=== PATIENT | male | born 1940 | race Caucasian/White ===

== ENCOUNTER 2022-12-30 04:12 | Day surgery (SDC) | payer OTHER, BC ==
[2022-12-26 13:45] VITALS: BMI 14.8
[2022-12-30] MEDS ORDERED: LIDOCAINE HCL/PF 1% SDV 5ML VIAL ONE (07:22)
[2022-12-30] MEDS ORDERED: BUPIVACAINE HCL/PF 0.5% (5MG/ML) 10 ML VIAL ONE (07:22)
[2022-12-30] MEDS ORDERED: TRIAMCINOLONE ACET 40MG/1ML VIAL ONE (11:18)
[2022-12-30] MEDS ORDERED: IOHEXOL 180 MG/1 ML ML IJ ONE (11:26)
[2022-12-30] MEDS ORDERED: BUPIVACAINE HCL/PF 0.5% (5MG/ML) 10 ML VIAL IJ ONE (11:26)
[2022-12-30] MEDS ORDERED: TRIAMCINOLONE ACET 40MG/1ML VIAL IM ONE (11:26)
[2022-12-30] MEDS ORDERED: LIDOCAINE HCL 1%, 10 MG/ML (20ML VIAL) INF ONE (11:26)
[2022-12-30 11:49] VITALS: PULSE 64; TEMP 97.7
[2022-12-30 12:01] VITALS: BP 130/70; RESP 18
[2022-12-30] MEDS ORDERED: ACETAMINOPHEN 500 MG TABLET (FP) PO PRN (13:49)
== END 2022-12-30 12:06 | disposition home or self-care (01) ==
LOC: JASU-SURG 04:12
PROVIDERS: ATTEND Pain Medicine Pain Medicine
PROC: 3E0U3BZ Introduction of Anesthetic Agent into Joints, Percutaneous Approach (ICD-10-PCS; 2022-12-30)
PROC: 3E0U33Z Introduction of Anti-inflammatory into Joints, Percutaneous Approach (ICD-10-PCS; principal; 2022-12-30 11:45)
DX: M53.3 Sacrococcygeal disorders, not elsewhere classified (principal)
CPT/HCPCS: 76000-TC-FY

== ENCOUNTER 2023-02-27 04:13 | Day surgery (SDC) | payer OTHER, BC ==
[2023-02-24 15:17] VITALS: BMI 14.8
[2023-02-27] MEDS ORDERED: LIDOCAINE HCL/PF 1% SDV 5ML VIAL ONE (07:27)
[2023-02-27] MEDS ORDERED: LIDOCAINE HCL 1% PRESERVATIVE FREE - 30ML VIAL IJ ONE (09:20)
[2023-02-27 09:43] VITALS: PULSE 56
[2023-02-27 10:11] VITALS: BP 114/60; RESP 18; TEMP 98
[2023-02-27] MEDS ORDERED: ACETAMINOPHEN 500 MG TABLET (FP) PO PRN (12:50)
== END 2023-02-27 10:14 | disposition home or self-care (01) ==
LOC: JASU-SURG 04:13
PROVIDERS: ATTEND Pain Medicine Pain Medicine
PROC: 01HY3MZ Insertion of Neurostimulator Lead into Peripheral Nerve, Percutaneous Approach (ICD-10-PCS; principal; 2023-02-27 08:45)
DX: G89.4 Chronic pain syndrome (principal)
CPT/HCPCS: 64555; C1778; 76000-TC-FY

== ENCOUNTER 2023-03-03 04:06 | Day surgery (SDC) | payer OTHER, BC ==
[2023-02-26 08:51] VITALS: BMI 14.5
[2023-03-03] MEDS ORDERED: PROPOFOL 20 ML ONE (14:22)
[2023-03-03] MEDS ORDERED: MIDAZOLAM HCL 2 MG/2 ML SINGLE DOSE VIAL ONE (14:22)
[2023-03-03] MEDS ORDERED: LIDOCAINE HCL/PF 2% SDV 5ML VIAL ONE (14:24)
[2023-03-03] MEDS ORDERED: ONDANSETRON 4 MG/2 ML VIAL ONE (14:24)
[2023-03-03] MEDS ORDERED: DEXAMETHASONE SOD PHOSPHATE 4 MG/1 ML VIAL ONE (14:24)
[2023-03-03] MEDS ORDERED: ONDANSETRON 4 MG/2 ML VIAL IVPUSH PRN (15:43)
[2023-03-03] MEDS ORDERED: PROMETHAZINE HCL 25 MG/1 ML VIAL IVPB PRN (15:43)
[2023-03-03] MEDS ORDERED: LACTATED RINGERS SOLUTION 1,000 ML IV SCH (15:45)
[2023-03-03] MEDS ORDERED: ceFAZolin SODIUM 1 GM VIAL IVPB ONE (16:24)
[2023-03-03] MEDS ORDERED: SODIUM CHLORIDE 0.9% P/F 10 ML VIAL IJ ONE (16:41)
[2023-03-03] MEDS ORDERED: ceFAZolin SODIUM 1 GM VIAL ONE (16:41)
[2023-03-03 18:30] VITALS: RESP 18
[2023-03-03 19:26] VITALS: BP 111/58; PULSE 62; TEMP 97.9
== END 2023-03-03 18:50 | disposition home or self-care (01) ==
LOC: JASU-SURG 04:06
PROVIDERS: ATTEND Urology
PROC: 0TCB8ZZ Extirpation of Matter from Bladder, Via Natural or Artificial Opening Endoscopic (ICD-10-PCS; principal; 2023-03-03 14:00)
PROC: 0VT08ZZ Resection of Prostate, Via Natural or Artificial Opening Endoscopic (ICD-10-PCS; 2023-03-03 14:00)
DX: N40.1 Benign prostatic hyperplasia with lower urinary tract symptoms (principal); N21.0 Calculus in bladder; N13.8 Other obstructive and reflux uropathy; R33.8 Other retention of urine; N32.89 Other specified disorders of bladder
CPT/HCPCS: 86850; 86900; 86901; 94760

== ENCOUNTER 2023-11-06 01:55 | Emergency (ER) | payer OTHER, BC ==
[2023-11-06 02:00] VITALS: BP 109/74; PULSE 81; RESP 18; TEMP 97.3; BMI 14.3
[2023-11-06] MEDS ORDERED: MAGNESIUM CITRATE 300 ML BOTTLE ONE (02:14)
[2023-11-06] MEDS ORDERED: BISACODYL 10 MG SUPP.RECT ONE (02:14)
[2023-11-06] MEDS: MAGNESIUM CITRATE 300 ML BOTTLE PO ONE (02:17)
[2023-11-06] MEDS: BISACODYL 10 MG SUPP.RECT PR ONE (02:17)
== END 2023-11-06 03:23 | disposition home or self-care (01) ==
LOC: FER 01:55
DX: K59.01 Slow transit constipation (principal)
CPT/HCPCS: 82272; 99283-25